=== PATIENT | male | born 1955 | race Caucasian/White ===

== ENCOUNTER 2016-11-22 18:49 | Emergency (ER) | payer OTHER ==
[2016-11-22 19:07] VITALS: BP 112/67; PULSE 84; RESP 18; TEMP 98.2; O2SAT 97
--- NOTE | 2016-11-22 20:16 | ED PDOC ---
HPI: Skin/Bite Injury Time Seen by Provider: 11/22/16 20:08 Chief Complaint (Nursing): Abnormal Skin Integrity Chief Complaint (Provider): Abrasions behind both Ears History Per: Patient History/Exam Limitations: no limitations Onset/Duration Of Symptoms: Days (x3) Additional Complaint(s): 20:08 Doe Ewrin, 61 year old male initially asleep in ED chair upon arrival, complains of abrasions behind both ears when woken up. No additional complaints at this time. Past Medical History Reviewed: Historical Data, Nursing Documentation, Vital Signs Vital Signs: Last Vital Signs Temp 98.2 F 11/22/16 19:06 Pulse 84 11/22/16 19:06 Resp 18 11/22/16 19:06 BP 112/67 11/22/16 19:06 Pulse Ox 97 11/22/16 21:11 - Medical History PMH: No Chronic Diseases - Family History Family History: States: Unknown Family Hx - Home Medications Home Medications: Ambulatory Orders Medication Instructions Recorded No Known Home Med [No Known Home 01/31/15 Med] - Allergies Allergies/Adverse Reactions: Allergies Allergy/AdvReac Type Severity Reaction Status Date / Time No Known Allergies Allergy Verified 08/08/16 20:22 Review of Systems ENT: Positive for: Other (Complains of Abrasions behind both ears) Physical Exam - Reviewed Nursing Documentation Reviewed: Yes Vital Signs Reviewed: Yes - Physical Exam Appears: Positive for: Non-toxic, No Acute Distress Head Exam: Positive for: ATRAUMATIC, NORMAL INSPECTION (No Abrasions visualized. ), NORMOCEPHALIC - ECG O2 Sat by Pulse Oximetry: 97 (RA) Pulse Ox Interpretation: Normal Medical Decision Making Medical Decision Makin:08 Initial Impression: * Reported superficial abrasions * Normal physical exam * Homeless Scribe Attestation: Documented by Lisbeth Simons, training under Nargis Keith, acting as a scribe for Katlin Reeves PA-C. Provider Scribe Attestation: All medical record entries made by the Scribe were at my direction and personally dictated by me. I have reviewed the chart and agree that the record accurately reflects my personal performance of the history, physical exam, medical decision making, and the department course for this patient. I have also personally directed, reviewed, and agree with the discharge instructions and disposition. Disposition - Clinical Impression Clinical Impression: Skin lesion - Patient ED Disposition Is Patient to be Admitted: No - Disposition Disposition: Routine/Home Disposition Time: 21:54 Condition: STABLE Instructions: Abrasion (ED)
== END 2016-11-22 21:57 | disposition home or self-care (01) ==
LOC: H.ER 18:49
DX: T14.8 Other injury of unspecified body region (principal); Z59.0 Homelessness

== ENCOUNTER 2016-12-09 00:20 | Emergency (ER) | payer OTHER ==
[2016-12-09 00:50] VITALS: BP 138/87; PULSE 76; RESP 16; TEMP 98.7; O2SAT 98
--- NOTE | 2016-12-09 01:15 | ED PDOC ---
Upper Extremity Pain/Injury Time Seen by Provider: 12/09/16 00:51 Chief Complaint (Nursing): Finger,Hand,&Wrist Chief Complaint (Provider): thumb eval History Per: Patient History/Exam Limitations: no limitations Additional History Per: Patient Additional Complaint(s): 61 y/o male presents for eval of injury to left thumb. Patient states he was just treated at an ED in [place], where he was given antibiotics and had prescription sent to one of his pharmacies so he decided to come here too. Denies fever, limitation of movement. Past Medical History Reviewed: Historical Data, Nursing Documentation, Vital Signs Vital Signs: Last Vital Signs Temp 98.7 F 12/09/16 00:46 Pulse 76 12/09/16 00:46 Resp 16 12/09/16 00:46 BP 138/87 12/09/16 00:46 Pulse Ox 98 12/09/16 00:46 - Family History Family History: States: Unknown Family Hx - Home Medications Home Medications: Ambulatory Orders Medication Instructions Recorded Cephalexin [Keflex] 500 mg PO Q6 #28 capsule 12/09/16 - Allergies Allergies/Adverse Reactions: Allergies Allergy/AdvReac Type Severity Reaction Status Date / Time No Known Allergies Allergy Verified 08/08/16 20:22 Review of Systems ROS Statement: Except As Marked, All Systems Reviewed And Found Negative Musculoskeletal: Positive for: Hand Pain (left thumb) Physical Exam - Reviewed Nursing Documentation Reviewed: Yes Vital Signs Reviewed: Yes - Physical Exam Appears: Positive for: Well, Non-toxic, No Acute Distress Extremity: Positive for: Normal ROM, Other (dried drainage nailbed left hand first digit. Mild surrounding tenderness. No swelling. FROM) Neurologic/Psych: Positive for: Alert, Oriented - ECG O2 Sat by Pulse Oximetry: 98 - Progress ED Course And Treament: Patient given rx for Keflex because he states he does not remember what pharmacy antibiotic was sent to. Patient has follow up appt in [place] set for Thursday, but patient states he will go to [facility] for his follow up care. Return to Ed for worsening/concerning symptoms. Disposition - Clinical Impression Clinical Impression: Cellulitis - Patient ED Disposition Is Patient to be Admitted: No Counseled Patient/Family Regarding: Diagnosis, Need For Followup, Rx Given - Disposition Disposition: Routine/Home Disposition Time: 02:30 Condition: STABLE Additional Instructions: Follow up at your scheduled appointment. Take medication as directed. Return to ED for worsening/concerning symptoms. Prescriptions: Cephalexin [Keflex] 500 mg PO Q6 #28 capsule Instructions: Cellulitis (ED)
== END 2016-12-09 02:30 | disposition home or self-care (01) ==
LOC: H.ER 00:20
DX: L03.012 Cellulitis of left finger (principal)

== ENCOUNTER 2017-01-30 01:10 | Emergency (ER) | payer OTHER ==
[2017-01-30 01:27] VITALS: O2SAT 98
--- NOTE | 2017-01-30 03:19 | ED PDOC ---
HPI: General Adult Time Seen by Provider: 01/30/17 03:39 Chief Complaint (Nursing): Upper Extremity Problem/Injury Chief Complaint (Provider): medical eval History Per: Patient History/Exam Limitations: no limitations Additional Complaint(s): 61yo M in ED for eval of skin lesion to his back x december years. no other complains. Past Medical History Reviewed: Historical Data, Nursing Documentation, Vital Signs Vital Signs: Last Vital Signs Temp 98 F 01/30/17 01:23 Pulse 78 01/30/17 01:23 Resp 18 01/30/17 01:23 BP 152/96 H 01/30/17 01:23 Pulse Ox 98 01/30/17 01:23 - Medical History PMH: No Chronic Diseases - Family History Family History: States: Unknown Family Hx - Home Medications Home Medications: Ambulatory Orders Medication Instructions Recorded Cephalexin [Keflex] 500 mg PO Q6 #28 capsule 12/09/16 Mupirocin Calcium [Mupirocin] 2 gm TP DAILY #15 gm 01/30/17 - Allergies Allergies/Adverse Reactions: Allergies Allergy/AdvReac Type Severity Reaction Status Date / Time No Known Allergies Allergy Verified 01/30/17 01:23 Review of Systems ROS Statement: Except As Marked, All Systems Reviewed And Found Negative Constitutional: Negative for: Fever Physical Exam - Reviewed Nursing Documentation Reviewed: Yes Vital Signs Reviewed: Yes - Physical Exam Appears: Positive for: Well, Non-toxic, No Acute Distress Head Exam: Positive for: ATRAUMATIC, NORMAL INSPECTION, NORMOCEPHALIC Skin: Positive for: Normal Color, Warm, Rash (wart on back) Neurologic/Psych: Positive for: Alert, Oriented - ECG O2 Sat by Pulse Oximetry: 98 Medical Decision Making Medical Decision Making: pt d/c give muporcin advised to have pmd f.u Disposition - Clinical Impression Clinical Impression: Skin lesion - Patient ED Disposition Is Patient to be Admitted: No - Disposition Disposition: Routine/Home Disposition Time: 04:02 Condition: STABLE Prescriptions: Mupirocin Calcium [Mupirocin] 2 gm TP DAILY #15 gm Instructions: Common Wart (ED)
[2017-01-30 06:50] VITALS: BP 146/71; PULSE 72; RESP 16; TEMP 97.9
== END 2017-01-30 04:15 | disposition home or self-care (01) ==
LOC: H.ER 01:10
DX: Z48.00 Encounter for change or removal of nonsurgical wound dressing (principal)

== ENCOUNTER 2017-04-27 04:57 | Emergency (ER) | payer OTHER ==
[2017-04-27 05:15] VITALS: BP 130/74; PULSE 82; RESP 18; TEMP 98.4; O2SAT 97; BMI 27.1
--- NOTE | 2017-04-27 05:20 | ED PDOC ---
Upper Extremity Pain/Injury Time Seen by Provider: 04/27/17 05:04 Chief Complaint (Nursing): Finger,Hand,&Wrist Chief Complaint (Provider): Hand pain History Per: Patient Additional Complaint(s): Doe Erwin, 61 year old male initially asleep in ED chair upon arrival, complains of left hand pain sustained from an injury several years ago. Pt reports "I want a second opinion." No additional complaints at this time. Past Medical History Reviewed: Nursing Documentation, Vital Signs Vital Signs: Last Vital Signs Temp 98.4 F 04/27/17 05:13 Pulse 82 04/27/17 05:13 Resp 18 04/27/17 05:13 BP 130/74 04/27/17 05:13 Pulse Ox 97 04/27/17 05:13 - Medical History PMH: No Chronic Diseases - Family History Family History: States: Unknown Family Hx - Home Medications Home Medications: Ambulatory Orders Medication Instructions Recorded Cephalexin [Keflex] 500 mg PO Q6 #28 capsule 12/09/16 Mupirocin Calcium [Mupirocin] 2 gm TP DAILY #15 gm 01/30/17 - Allergies Allergies/Adverse Reactions: Allergies Allergy/AdvReac Type Severity Reaction Status Date / Time No Known Allergies Allergy Verified 01/30/17 01:23 Review of Systems ROS Statement: Except As Marked, All Systems Reviewed And Found Negative Musculoskeletal: Positive for: Other (left hand pain) Physical Exam - Reviewed Nursing Documentation Reviewed: Yes Vital Signs Reviewed: Yes - Physical Exam Appears: Positive for: Well, Non-toxic, No Acute Distress Head Exam: Positive for: ATRAUMATIC, NORMAL INSPECTION, NORMOCEPHALIC Skin: Positive for: Normal Color, Warm, DRY Eye Exam: Positive for: EOMI, Normal appearance, PERRL ENT: Positive for: Normal ENT Inspection Neck: Positive for: Normal, Painless ROM Cardiovascular/Chest: Positive for: Regular Rate, Rhythm Respiratory: Positive for: CNT, Normal Breath Sounds Gastrointestinal/Abdominal: Positive for: Normal Exam, Bowel Sounds, Soft Back: Positive for: Normal Inspection Extremity: Positive for: Normal ROM, Tenderness, Other (mild edema over 3rd MCP joint) Neurologic/Psych: Positive for: Alert, Oriented - ECG O2 Sat by Pulse Oximetry: 97 Medical Decision Making Medical Decision Making: XR obtained:heath MENCHACA read by AIXA Disposition - Clinical Impression Clinical Impression: Hand pain - Patient ED Disposition Is Patient to be Admitted: No - Disposition Disposition: Routine/Home Disposition Time: 06:00 Condition: STABLE Instructions: Arthralgia (ED) Forms: [employer] (Bermudian) - POA Present On Arrival: None
--- NOTE | 2017-04-27 10:12 | RAD ---
PROCEDURE: Left Hand Radiographs. HISTORY: Pain COMPARISON: None. FINDINGS: BONES: There is no acute displaced fracture or bone destruction. Bone alignment and mineralization are normal. JOINTS: Normal. No osteoarthritic changes. SOFT TISSUES: Normal. OTHER FINDINGS: None. IMPRESSION: No acute fracture or dislocation.
== END 2017-04-27 06:16 | disposition home or self-care (01) ==
LOC: H.ER 04:57
DX: M79.642 Pain in left hand (principal)

== ENCOUNTER 2017-04-27 20:19 | Emergency (ER) | payer OTHER ==
[2017-04-27 20:19] VITALS: BMI 27.1
[2017-04-27 20:57] VITALS: BP 146/92; PULSE 82; RESP 18; TEMP 97.9; O2SAT 100
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
== END 2017-04-27 22:44 | disposition home or self-care (01) ==
LOC: H.ER 20:19
DX: Z00.00 Encounter for general adult medical examination without abnormal findings (principal)

== ENCOUNTER 2017-05-09 22:35 | Emergency (ER) | payer OTHER ==
[2017-05-09 22:35] VITALS: BMI 27.1
--- NOTE | 2017-05-09 23:39 | ED PDOC ---
HPI: Abdomen Time Seen by Provider: 05/09/17 23:19 Chief Complaint (Nursing): Abdominal Pain Chief Complaint (Provider): Abdominal Pain History Per: Patient History/Exam Limitations: no limitations Onset/Duration Of Symptoms: Days (x1) Current Symptoms Are (Timing): Still Present Additional Complaint(s): Doe Erwin is a 61 year old male who presents to the emergency department with a complaint of watery diarrhea associated with abdominal bloating status post eating Macedonian food ongoing for 3 days. Denied any fever, chills or abdominal pain. Patient stated he usually goes to a [facility] in [place] but was in the area visiting when symptoms began and reported diarrhea has become slightly better. PMD: none provided Past Medical History Reviewed: Historical Data, Nursing Documentation, Vital Signs Vital Signs: Last Vital Signs Temp 97.5 F L 05/09/17 22:42 Pulse 69 05/09/17 22:42 Resp 18 05/09/17 22:42 BP 144/77 05/09/17 22:42 Pulse Ox 98 05/09/17 23:47 - Medical History PMH: No Chronic Diseases - Surgical History Surgical History: No Surg Hx - Family History Family History: States: Unknown Family Hx - Social History Current smoker - smoking cessation education provided: No Ex-Smoker (has not smoked in the last 12 months): No Alcohol: Social Drugs: Denies - Home Medications Home Medications: Ambulatory Orders Medication Instructions Recorded No Known Home Med 05/09/17 - Allergies Allergies/Adverse Reactions: Allergies Allergy/AdvReac Type Severity Reaction Status Date / Time No Known Allergies Allergy Verified 01/30/17 01:23 Review of Systems ROS Statement: Except As Marked, All Systems Reviewed And Found Negative Constitutional: Negative for: Fever, Chills Gastrointestinal: Positive for: Diarrhea (watery), Other (abdominal bloating). Negative for: Vomiting, Abdominal Pain Physical Exam - Reviewed Nursing Documentation Reviewed: Yes Vital Signs Reviewed: Yes - Physical Exam Appears: Positive for: Well, Non-toxic, No Acute Distress Head Exam: Positive for: ATRAUMATIC, NORMAL INSPECTION, NORMOCEPHALIC Skin: Positive for: Normal Color Eye Exam: Positive for: Normal appearance, EOMI, PERRL. Negative for: Nystagmus ENT: Positive for: Normal ENT Inspection Neck: Positive for: Normal, Painless ROM, Supple. Negative for: Decreased ROM Cardiovascular/Chest: Positive for: Regular Rate, Rhythm. Negative for: Chest Non Tender Respiratory: Positive for: Normal Breath Sounds, Accessory Muscle Use. Negative for: Decreased Breath Sounds, Respiratory Distress Gastrointestinal/Abdominal: Positive for: Normal Exam, Bowel Sounds, Soft. Negative for: Tenderness, Mass Back: Positive for: Normal Inspection. Negative for: L CVA Tenderness, R CVA Tenderness Extremity: Positive for: Normal ROM. Negative for: Tenderness, Pedal Edema, Deformity Neurologic/Psych: Positive for: Alert, Oriented - ECG O2 Sat by Pulse Oximetry: 98 (RA) Pulse Ox Interpretation: Normal Medical Decision Making Medical Decision Making: Initial Impression: Diarrhea; abdominal bloating Differential Diagnosis: Gastritis; enteritis; viral illness; less likely small bowel obstruction Initial Plan: * Amylase * CMP * Lipase * CBC * Xray ABD Time: 00:00 --Patient is signed out to Dr. Martin Ospina. Pending Xray results and disposition. Scribe Attestation: Documented by Yady Knott, acting as a scribe for Horace Hood MD. Provider Scribe Attestation: All medical record entries made by the Scribe were at my direction and personally dictated by me. I have reviewed the chart and agree that the record accurately reflects my personal performance of the history, physical exam, medical decision making, and the department course for this patient. I have also personally directed, reviewed, and agree with the discharge instructions and disposition. Disposition - Clinical Impression Clinical Impression: Diarrhea - Patient ED Disposition Is Patient to be Admitted: Transfer of Care Counseled Patient/Family Regarding: Studies Performed, Diagnosis - Disposition Disposition: Transfer of Care Disposition Time: 23:59 Condition: STABLE Forms: [employer] (Slovenian) Patient Signed Over To: Martin Ospina
[2017-05-09 23:55] LABS: BASO # 0.1 K/uL (0.0-0.2); BASO % 1.1 % (0.0-2.0); EOS # 0.1 K/uL (0.0-0.7); EOS % 2.3 % (0.0-4.0); HEMATOCRIT 37.3 % (35.0-51.0); LYMPH # 1.8 K/uL (1.0-4.3); LYMPH % 37.7 % (20.0-40.0); MEAN CELL VOLUME 87.7 fl (80.0-94.0); MEAN CORPUSCULAR HEMOGLOBIN 28.9 pg (27.0-31.0); MEAN CORPUSCULAR HGB CONC 32.9 g/dL (33.0-37.0); MONO # 0.4 K/uL (0.0-0.8); MONO % 8.3 % (0.0-10.0); NEUT # 2.4 K/uL (1.8-7.0); NEUT % 50.6 % (50.0-75.0); NRBC % 0.2 % (0.0-0.0); WHITE BLOOD COUNT 4.7 K/uL (4.8-10.8)
--- NOTE | 2017-05-10 00:01 | ED PDOC ---
- Laboratory Results Result Diagrams: 05/09/17 23:45 05/09/17 23:45 - ECG O2 Sat by Pulse Oximetry: 98 (RA) Pulse Ox Interpretation: Normal Medical Decision Making Medical Decision Making: Time: 00:00 --Patient was endorsed to provider by Dr. Horace Hood. Pending xray results, labs and disposition. 400 Pt. resting comfortably, no diarrhea in ER. Will d/c home. Return precautions given. Scribe Attestation: Documented by Yady Knott, acting as a scribe for Martin Ospina MD. Provider Scribe Attestation: All medical record entries made by the Scribe were at my direction and personally dictated by me. I have reviewed the chart and agree that the record accurately reflects my personal performance of the history, physical exam, medical decision making, and the department course for this patient. I have also personally directed, reviewed, and agree with the discharge instructions and disposition. Disposition - Clinical Impression Clinical Impression: Diarrhea - POA Present On Arrival: None - Disposition Referrals: [facility] [Outside] Disposition: Routine/Home Disposition Time: 04:00 Condition: STABLE Prescriptions: Dicyclomine [Bentyl] 10 mg PO QID #30 cap Instructions: Acute Diarrhea (ED) Forms: [employer] (Sammarinese)
[2017-05-10 00:03] LABS: ALB/GLOB RATIO 1.1 (1.0-2.1); ALKALINE PHOSPHATASE 66 U/L (38-126); ALT/SGPT 49 U/L (21-72); AMYLASE 104 U/L (30-110); AST/SGOT 35 U/L (17-59); BILIRUBIN,TOTAL 0.5 mg/dl (0.2-1.3); BLOOD UREA NITROGEN 22 mg/dl (9-20); CALCIUM 9.4 mg/dL (8.4-10.2); CARBON DIOXIDE 24 mmol/L (22-30); CHLORIDE 101 mmol/L (98-107); GFR AFRICAN-AMERICAN > 60; GLUCOSE,RANDOM 124 mg/dL (75-110); LIPASE 162 U/L (23-300); POTASSIUM 4.2 MMOL/L (3.6-5.0); SODIUM 137 mmol/l (132-148); TOTAL PROTEIN 7.7 G/DL (6.3-8.2)
[2017-05-10 04:23] VITALS: BP 139/78; PULSE 81; RESP 16; TEMP 97.8
[2017-05-10 04:29] VITALS: O2SAT 98
--- NOTE | 2017-05-10 09:45 | RAD ---
HISTORY: abd bloating COMPARISON: Abdominal radiographs performed 08/08/16 FINDINGS: BOWEL: Nonobstructive bowel gas pattern. No definite free air. BONES: No acute osseous abnormality is detected. OTHER FINDINGS: Pelvic calcifications, likely phleboliths. IMPRESSION: Nonobstructive bowel gas pattern.
== END 2017-05-10 04:24 | disposition home or self-care (01) ==
LOC: H.ER 22:35
DX: R19.7 Diarrhea, unspecified (principal); R10.9 Unspecified abdominal pain

== ENCOUNTER 2017-05-26 12:10 | Emergency (ER) | payer OTHER ==
[2017-05-26 12:11] VITALS: BMI 27.1
[2017-05-26 12:17] VITALS: BP 129/76; PULSE 78; RESP 19; TEMP 96; O2SAT 98
[2017-05-26] MEDS ORDERED: Alum-Mag Hydrox-Simethicone Susp (30 mL) PO STA (12:49)
[2017-05-26] MEDS ORDERED: Alum-Mag Hydrox-Simethicone Susp (30 mL) ONE (12:55)
[2017-05-26] MEDS ORDERED: Alum-Mag Hydrox-Simethicone Susp (30 mL) PO ONE (12:55)
--- NOTE | 2017-05-26 13:22 | ED PDOC ---
HPI: Abdomen Time Seen by Provider: 05/26/17 12:14 Chief Complaint (Nursing): Abdominal Pain Chief Complaint (Provider): Abdominal Pain History Per: Patient History/Exam Limitations: no limitations Onset/Duration Of Symptoms: Days (x weeks) Current Symptoms Are (Timing): Still Present Additional Complaint(s): Doe is a 62 y/o male who presents to the ED complaining of abdominal discomfort and nausea, ongoing for some time. Patient was recently seen for the same at a hospital in [facility]. Requesting Maalox and Pepcid. No vomiting or diarrhea. PMD: Provider TBD Past Medical History Reviewed: Historical Data, Nursing Documentation, Vital Signs Vital Signs: Last Vital Signs Temp 96.0 F L 05/26/17 12:13 Pulse 78 05/26/17 12:13 Resp 19 05/26/17 12:13 BP 129/76 05/26/17 12:13 Pulse Ox 98 05/26/17 13:35 - Family History Family History: States: Unknown Family Hx - Home Medications Home Medications: Ambulatory Orders Medication Instructions Recorded Dicyclomine [Bentyl] 10 mg PO QID #30 cap 05/10/17 Famotidine [Pepcid] 20 mg PO DAILY #30 tab 05/26/17 - Allergies Allergies/Adverse Reactions: Allergies Allergy/AdvReac Type Severity Reaction Status Date / Time No Known Allergies Allergy Verified 01/30/17 01:23 Review of Systems ROS Statement: Except As Marked, All Systems Reviewed And Found Negative Gastrointestinal: Positive for: Nausea, Abdominal Pain. Negative for: Vomiting , Diarrhea Physical Exam - Reviewed Nursing Documentation Reviewed: Yes Vital Signs Reviewed: Yes - Physical Exam Appears: Positive for: Well, Non-toxic, No Acute Distress Head Exam: Positive for: ATRAUMATIC, NORMAL INSPECTION, NORMOCEPHALIC Skin: Positive for: Normal Color, Warm, Dry Eye Exam: Positive for: Normal appearance Neck: Positive for: Normal Respiratory: Negative for: Respiratory Distress Gastrointestinal/Abdominal: Positive for: Normal Exam, Soft. Negative for: Tenderness, Guarding, Rebound Neurologic/Psych: Positive for: Alert, Oriented - ECG O2 Sat by Pulse Oximetry: 98 (RA) Pulse Ox Interpretation: Normal Medical Decision Making Medical Decision Making: Time: 12:49 Initial Plan: --Maalox 30 ml PO --Pepcid 20 mg PO Patient offered EKG and deferred. Labs from previous visit were reviewed, and normal. Patient also requesting to speak to a social sciences chair to have his [employer] card refilled. Clinical Impression: Abdominal pain Upon provider evaluation patient is medically stable, and requires no further treatment in the ED at this time. Patient will be discharged home with Rx for Pepcid. Counseling was provided and all questions were answered regarding diagnosis and need for follow up with PMD. There is agreement to discharge plan. Return if symptoms persist or worsen. Scribe Attestation: Documented by Nani Sadler, acting as a scribe for Carine Diamond PA-C Provider Scribe Attestation: All medical record entries made by the Scribe were at my direction and personally dictated by me. I have reviewed the chart and agree that the record accurately reflects my personal performance of the history, physical exam, medical decision making, and the department course for this patient. I have also personally directed, reviewed, and agree with the discharge instructions and disposition. Disposition - Clinical Impression Clinical Impression: Abdominal pain - Patient ED Disposition Is Patient to be Admitted: No Counseled Patient/Family Regarding: Diagnosis, Need For Followup, Rx Given - Disposition Referrals: FAMILY PROVIDER,NO [Primary Care Provider] - Disposition: Routine/Home Disposition Time: 13:10 Condition: STABLE Prescriptions: Famotidine [Pepcid] 20 mg PO DAILY #30 tab Instructions: Abdominal Pain (ED) Forms: [employer] (Singaporean)
== END 2017-05-26 14:05 | disposition home or self-care (01) ==
LOC: H.ER 12:10 → SUPCPDRO 12:10 → H.ER 14:05
DX: R10.9 Unspecified abdominal pain (principal)

== ENCOUNTER 2017-10-07 21:47 | Emergency (ER) | payer OTHER ==
[2017-10-07 21:48] VITALS: BMI 34.4
[2017-10-07 22:04] VITALS: BP 142/89; PULSE 80; RESP 18; TEMP 97.9; O2SAT 97
--- NOTE | 2017-10-07 22:37 | ED PDOC ---
HPI: Eye Injury/Pain Time Seen by Provider: 10/07/17 21:59 Chief Complaint (Nursing): Eye Problem Chief Complaint (Provider): "I just want to get my eye checked ou" History Per: Patient History/Exam Limitations: no limitations Onset/Duration Of Symptoms: Days Additional Complaint(s): 62 yo male presents for evaluation of eyes. Pt states he wants to make sure they are okay. Pt states he was concerned about certain foods he ate affecting them. Denies pain or change in vision. Past Medical History Reviewed: Historical Data, Nursing Documentation, Vital Signs Vital Signs: Last Vital Signs Temp 97.9 F 10/07/17 22:02 Pulse 80 10/07/17 22:02 Resp 18 10/07/17 22:02 BP 142/89 10/07/17 22:02 Pulse Ox 97 10/07/17 22:02 - Medical History PMH: No Chronic Diseases - Surgical History Surgical History: No Surg Hx - Family History Family History: States: Unknown Family Hx - Living Arrangements Living Arrangements: With Family - Social History Current smoker - smoking cessation education provided: No - Home Medications Home Medications: Ambulatory Orders Medication Instructions Recorded Dicyclomine [Bentyl] 10 mg PO QID #30 cap 05/10/17 Famotidine [Pepcid] 20 mg PO DAILY #30 tab 05/26/17 - Allergies Allergies/Adverse Reactions: Allergies Allergy/AdvReac Type Severity Reaction Status Date / Time No Known Allergies Allergy Verified 10/07/17 22:01 Review of Systems ROS Statement: Except As Marked, All Systems Reviewed And Found Negative Constitutional: Negative for: Fever, Chills Eyes: Negative for: Pain, Eyelid Inflammation, Redness ENT: Negative for: Ear Pain, Ear Discharge Physical Exam - Reviewed Nursing Documentation Reviewed: Yes Vital Signs Reviewed: Yes - Physical Exam Appears: Positive for: Well, Non-toxic, No Acute Distress Head Exam: Positive for: ATRAUMATIC, NORMAL INSPECTION, NORMOCEPHALIC Skin: Positive for: Normal Color Eye Exam: Positive for: EOMI, Normal appearance, PERRL ENT: Positive for: Normal ENT Inspection Neck: Positive for: Normal Respiratory: Negative for: Accessory Muscle Use, Respiratory Distress Back: Positive for: Normal Inspection Extremity: Positive for: Normal ROM Neurologic/Psych: Positive for: Alert, Oriented - ECG O2 Sat by Pulse Oximetry: 97 Disposition - Clinical Impression Clinical Impression: Normal eye exam - Patient ED Disposition Is Patient to be Admitted: No - Disposition Disposition: Routine/Home Disposition Time: 22:34 Condition: STABLE Instructions: Fluorescein Angiography
== END 2017-10-07 22:56 | disposition home or self-care (01) ==
LOC: H.ER 21:47
DX: Z01.00 Encounter for examination of eyes and vision without abnormal findings (principal)

== ENCOUNTER 2017-10-11 12:00 | Emergency (ER) | payer OTHER ==
[2017-10-11 12:00] VITALS: BMI 34.4
[2017-10-11 12:22] VITALS: BP 140/89; PULSE 81; RESP 16; TEMP 97; O2SAT 97
--- NOTE | 2017-10-11 13:26 | ED PDOC ---
HPI: Eye Injury/Pain Time Seen by Provider: 10/11/17 13:21 Chief Complaint (Nursing): Eye Problem Chief Complaint (Provider): Eye Problem History Per: Patient Additional Complaint(s): 62 year old male presents to ED requesting an eye examination and presented to the ED 4 days ago for the same request. Patient states he recently returned from [facility]. (-) change in vision. Denies drug use. PCP: None Past Medical History Reviewed: Historical Data, Nursing Documentation, Vital Signs Vital Signs: Last Vital Signs Temp 97.0 F L 10/11/17 12:19 Pulse 81 10/11/17 12:19 Resp 16 10/11/17 12:19 BP 140/89 10/11/17 12:19 Pulse Ox 97 10/11/17 12:19 - Medical History PMH: No Chronic Diseases - Family History Family History: States: Unknown Family Hx - Social History Drugs: Denies - Home Medications Home Medications: Ambulatory Orders Medication Instructions Recorded No Known Home Med 10/12/17 - Allergies Allergies/Adverse Reactions: Allergies Allergy/AdvReac Type Severity Reaction Status Date / Time No Known Allergies Allergy Verified 10/11/17 12:19 Review of Systems ROS Statement: Except As Marked, All Systems Reviewed And Found Negative Eyes: Negative for: Pain, Vision Change Physical Exam - Reviewed Nursing Documentation Reviewed: Yes Vital Signs Reviewed: Yes - Physical Exam Appears: Positive for: Non-toxic, No Acute Distress Eye Exam: Positive for: EOMI, PERRL (pupils are dilated) - ECG O2 Sat by Pulse Oximetry: 97 (RA) Pulse Ox Interpretation: Normal Medical Decision Making Medical Decision Makin Initial impression: eye exam without abnormal findings Scribe Attestation: Documented by Ghada Mims, acting as a scribe for Bladimir Mcdonald PA-C. Provider Scribe Attestation: All medical record entries made by the Scribe were at my direction and personally dictated by me. I have reviewed the chart and agree that the record accurately reflects my personal performance of the history, physical exam, medical decision making, and the department course for this patient. I have also personally directed, reviewed, and agree with the discharge instructions and disposition. Disposition - Clinical Impression Clinical Impression: Encounter for examination of eyes and vision without abnormal findings, Encounter for wound re-check, Normal eye exam - Disposition Referrals: [facility] [Outside] Disposition Time: 13:58 Condition: GOOD Forms: [employer] (Jamaican)
== END 2017-10-11 14:13 | disposition home or self-care (01) ==
LOC: H.ER 12:00
DX: Z01.00 Encounter for examination of eyes and vision without abnormal findings (principal)

== ENCOUNTER 2017-10-12 09:22 | Emergency (ER) | payer OTHER ==
[2017-10-12 09:23] VITALS: BMI 34.4
--- NOTE | 2017-10-12 10:03 | ED PDOC ---
HPI: Psych/Substance Abuse Chief Complaint (Provider): Psychiatric Evaluation History/Exam Limitations: clinical condition Additional History Per: Prior Records Additional Complaint(s): Mr. Azar is a 62 year old male who presents to the ED via EMS who initially stated he wants an "eye exam'. Patient also had pressured tangential grandiose speech. 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 Hx limited due to clinical condition. Denies change in vision, headache, fever, neck pain, chest pain or shortness of breath. Prior charts reviewed. Several visits for similar complaints, however, psych component likely not as pronounced. PMD: [facility] <Doc Bellamy III - Last Filed: 10/12/17 19:23> <Mayank aNva - Last Filed: 10/12/17 20:17> Time Seen by Provider: 10/12/17 09:30 Chief Complaint (Nursing): Psychiatric Evaluation Past Medical History Reviewed: Unable To Obtain Vital Signs: Last Vital Signs Temp 97.6 F 10/12/17 09:34 Pulse 102 H 10/12/17 09:34 Resp 16 10/12/17 09:34 BP 154/86 H 10/12/17 09:34 Pulse Ox 98 10/12/17 09:34 - Family History Family History: States: Unknown Family Hx <Doc Bellamy III - Last Filed: 10/12/17 19:23> Vital Signs: Last Vital Signs Temp 97.6 F 10/12/17 09:34 Pulse 102 H 10/12/17 09:34 Resp 16 10/12/17 09:34 BP 154/86 H 10/12/17 09:34 Pulse Ox 98 10/12/17 12:01 <Mayank Nava - Last Filed: 10/12/17 20:17> - Home Medications Home Medications: Ambulatory Orders Medication Instructions Recorded No Known Home Med 10/12/17 - Allergies Allergies/Adverse Reactions: Allergies Allergy/AdvReac Type Severity Reaction Status Date / Time No Known Allergies Allergy Verified 10/11/17 12:19 Review of Systems Review Of Systems: ROS cannot be obtained secondary to pt's inabilty to answer questions. (Caveat: Unrealiable historian) <Doc Bellamy III - Last Filed: 10/12/17 19:23> Physical Exam - Reviewed Nursing Documentation Reviewed: Yes Vital Signs Reviewed: Yes - Physical Exam Appears: Positive for: Non-toxic Head Exam: Positive for: ATRAUMATIC, NORMAL INSPECTION, NORMOCEPHALIC Skin: Positive for: Normal Color, Warm, Dry Eye Exam: Positive for: Normal appearance, EOMI, PERRL ENT: Positive for: Normal ENT Inspection Neck: Positive for: Normal Cardiovascular/Chest: Positive for: Regular Rate, Rhythm Respiratory: Positive for: Normal Breath Sounds. Negative for: Respiratory Distress Gastrointestinal/Abdominal: Positive for: Normal Exam Back: Positive for: Normal Inspection Extremity: Positive for: Normal ROM. Negative for: Deformity Neurologic/Psych: Positive for: Alert, Oriented (x 3), Other (Pressued speech, grandiose, repetitive/ tangential speech, poor insight, delusional) <Doc Bellamy III - Last Filed: 10/12/17 19:23> - Laboratory Results Result Diagrams: 10/12/17 10:00 10/12/17 10:00 - ECG O2 Sat by Pulse Oximetry: 98 <Doc Bellamy III - Last Filed: 10/12/17 19:23> - Laboratory Results Result Diagrams: 10/12/17 10:00 10/12/17 10:00 - Radiology X-Ray: Interpreted by Co X-Ray Interpretation: No Acute Disease <Mayank Nava - Last Filed: 10/12/17 20:17> Medical Decision Making Medical Decision Making: Time: 09:46 Impression(s): Work up for crisis evaluation Plan: - EKG - Acetaminophen Stat - Alcohol Serum - CMP - Urine Drug Screen - Salicylate - Troponin I - CBC Time: 10:47 - Portable Chest X-Ray - 1:1 Observation CONT Time: 11:35 Portable Chest X-Ray FINDINGS: LUNGS: Bibasilar atelectasis right greater than left. Developing lower lobe infiltrates could be excluded with followup radiographs. The medial lung apices have been partially obscured by overlying facial soft tissue and mandible artifact PLEURA: No significant pleural effusion identified, no pneumothorax apparent. CARDIOVASCULAR: Heart appears enlarged OSSEOUS STRUCTURES: No significant abnormalities. VISUALIZED UPPER ABDOMEN: Normal. OTHER FINDINGS: None. IMPRESSION: Bibasilar atelectasis right greater than left. Developing lower lobe infiltrates could be excluded with followup radiographs. Time: 11:55 - Rapid HIV Screen - Urinalysis Stat approx 14:00 labs reviewed, clinically unremarkable. rapid HIV neg Per crisis, [facility] [place] [facility] [place], pending dispo, endorse Dr Nava Scribe Attestation: Documented by Eliceo Noel, acting as a scribe for Doc Bellamy III, DO Provider Scribe Attestation: All medical record entries made by the Scribe were at my direction and personally dictated by me. I have reviewed the chart and agree that the record accurately reflects my personal performance of the history, physical exam, medical decision making, and the department course for this patient. I have also personally directed, reviewed, and agree with the discharge instructions and disposition. 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 Patient clinically stable for psychiatric admission. <Mayank Nava - Last Filed: 10/12/17 20:17>
[2017-10-12 10:14] LABS: ALB/GLOB RATIO 1.2 (1.0-2.1); ALBUMIN 4.5 g/dL (3.5-5.0); ALT/SGPT 39 U/L (21-72); AST/SGOT 27 U/L (17-59); BLOOD UREA NITROGEN 14 mg/dl (9-20); CALCIUM 9.4 mg/dL (8.4-10.2); GFR AFRICAN-AMERICAN > 60; GFR NON-AFRICAN AMERICAN > 60
[2017-10-12 10:27] LABS: BASO % 0.8 % (0.0-2.0); EOS # 0.1 K/uL (0.0-0.7); EOS % 1.3 % (0.0-4.0); HEMOGLOBIN 13.3 g/dL (12.0-18.0); LYMPH # 1.3 K/uL (1.0-4.3); LYMPH % 28.9 % (20.0-40.0); MEAN CELL VOLUME 88.1 fl (80.0-94.0); MEAN CORPUSCULAR HEMOGLOBIN 29.2 pg (27.0-31.0); MEAN CORPUSCULAR HGB CONC 33.2 g/dL (33.0-37.0); MEAN PLATELET VOLUME 8.4 fl (7.2-11.7); MONO # 0.5 K/uL (0.0-0.8); MONO % 10.1 % (0.0-10.0); NEUT # 2.6 K/uL (1.8-7.0); NEUT % 58.9 % (50.0-75.0); NRBC % 0.1 % (0.0-0.0); RBC 4.54 Mil/uL (4.40-5.90); RED CELL DISTRIBUTION WIDTH 14.9 % (11.5-14.5); WHITE BLOOD COUNT 4.5 K/uL (4.8-10.8)
[2017-10-12 10:30] LABS: ACETAMINOPHEN < 10.0 ug/ml (10.0-30.0); SALICYLATE < 1.0 mg/dl
[2017-10-12 10:52] LABS: BARBITURATES, UR NEGATIVE (NEGATIVE); BENZODIAZEPINES, UR NEGATIVE (NEGATIVE); OPIATES, UR NEGATIVE (NEGATIVE); PHENCYCLIDINE, UR NEGATIVE (NEGATIVE)
--- NOTE | 2017-10-12 11:37 | RAD ---
HISTORY: AMS COMPARISON: No prior. FINDINGS: LUNGS: Bibasilar atelectasis right greater than left. Developing lower lobe infiltrates could be excluded with followup radiographs. The medial lung apices have been partially obscured by overlying facial soft tissue and mandible artifact PLEURA: No significant pleural effusion identified, no pneumothorax apparent. CARDIOVASCULAR: Heart appears enlarged OSSEOUS STRUCTURES: No significant abnormalities. VISUALIZED UPPER ABDOMEN: Normal. OTHER FINDINGS: None. IMPRESSION: Bibasilar atelectasis right greater than left. Developing lower lobe infiltrates could be excluded with followup radiographs.
[2017-10-12 12:20] LABS: SQUAMOUS EPITHIAL 1 /hpf (0-5); URINE AMORPHOUS SEDIMENT RARE /ul (<OCC); URINE BILIRUBIN NEGATIVE (NEGATIVE); URINE BLOOD NEGATIVE (NEGATIVE); URINE CLARITY SLIGHTY-CLOUDY (Clear); URINE COLOR YELLOW (YELLOW); URINE GLUCOSE (UA) NEG (Normal); URINE LEUKOCYTE ESTERASE NEG Leu/uL (Negative); URINE PROTEIN NEGATIVE (NEGATIVE)
--- NOTE | 2017-10-12 17:56 | CARD ---
APPROVED REPORT EKG Measurement Heart [id number] <Conclusion> Normal sinus rhythm Possible Left atrial enlargement Borderline ECG
--- NOTE | 2017-10-13 02:58 | ED PDOC ---
- Laboratory Results Result Diagrams: 10/12/17 10:00 10/12/17 10:00 - ECG O2 Sat by Pulse Oximetry: 99 (RA) Pulse Ox Interpretation: Normal Medical Decision Making Medical Decision Making: Time: --00:00 Reassess --Patient signed out to the provider by Dr. Nava pending bed at [facility]. Scribe Attestation: Documented by Malcom Zamudio acting as a scribe for Horace Hood MD. Provider Attestation: All medical record entries made by the Scribe were at my direction and personally dictated by me. I have reviewed the chart and agree that the record accurately reflects my personal performance of the history, physical exam, medical decision making, and the department course for this patient. I have also personally directed, reviewed, and agree with the discharge instructions and disposition. 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
--- NOTE | 2017-10-13 07:16 | ED PDOC ---
- Laboratory Results Result Diagrams: 10/12/17 10:00 10/12/17 10:00 - ECG O2 Sat by Pulse Oximetry: 99 (RA) Pulse Ox Interpretation: Normal Medical Decision Making Medical Decision Making: recd at 7am pending beds at [facility]. No issues reported overnight. Patient awake and watching TV on rounds. 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
--- NOTE | 2017-10-13 09:31 | RAD ---
HISTORY: crisis COMPARISON: Chest radiograph performed approximately 9 hours prior TECHNIQUE: Chest PA and lateral FINDINGS: LUNGS: Bibasilar atelectasis. PLEURA: No significant pleural effusion identified. No pneumothorax apparent. CARDIOVASCULAR: Cardiomediastinal silhouette unchanged. OSSEOUS STRUCTURES: Unchanged. VISUALIZED UPPER ABDOMEN: Normal. OTHER FINDINGS: None. IMPRESSION: Basilar atelectasis.
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
[2017-10-13 13:44] VITALS: BP 129/70; PULSE 95; RESP 18; TEMP 98.2
[2017-10-13 19:09] VITALS: O2SAT 99
== END 2017-10-13 13:50 | disposition short-term general hospital (02) ==
LOC: H.ER 09:22
DX: F22 Delusional disorders (principal); Z00.8 Encounter for other general examination

== ENCOUNTER 2017-11-10 18:08 | Emergency (ER) | payer OTHER ==
[2017-11-10 18:09] VITALS: BMI 34.4
[2017-11-10 18:26] VITALS: BP 112/72; PULSE 95; RESP 16; TEMP 99.3; O2SAT 99
--- NOTE | 2017-11-10 20:44 | ED PDOC ---
HPI: Eye Injury/Pain Time Seen by Provider: 11/10/17 20:14 Chief Complaint (Nursing): Eye Problem Chief Complaint (Provider): eye swelling History Per: Patient History/Exam Limitations: no limitations Onset/Duration Of Symptoms: Days (3 months), Waxing/Waning Additional Complaint(s): 62 y/o male presents for eye evaluation. Patient states he feels his eyes get swollen on-and-off x 3 months since starting Haldol and Cogentin. Patient denies headache, dizziness, vision changes, eye drainage, itching to eyes, pain to eyes, foreign body sensation in eyes. Past Medical History Reviewed: Historical Data, Nursing Documentation, Vital Signs Vital Signs: Last Vital Signs Temp 99.3 F 11/10/17 18:22 Pulse 95 H 11/10/17 18:22 Resp 16 11/10/17 18:22 BP 112/72 11/10/17 18:22 Pulse Ox 99 11/10/17 18:22 - Medical History PMH: Schizophrenia Denies: Diabetes, Hepatitis, HIV, HTN, Seizures, Sexually Transmitted Disease - Surgical History Surgical History: No Surg Hx - Family History Family History: States: Unknown Family Hx - Home Medications Home Medications: Ambulatory Orders Medication Instructions Recorded No Known Home Med 10/12/17 - Allergies Allergies/Adverse Reactions: Allergies Allergy/AdvReac Type Severity Reaction Status Date / Time No Known Allergies Allergy Verified 10/11/17 12:19 Review of Systems ROS Statement: Except As Marked, All Systems Reviewed And Found Negative Eyes: Positive for: Eyelid Inflammation Physical Exam - Reviewed Nursing Documentation Reviewed: Yes Vital Signs Reviewed: Yes - Physical Exam Appears: Positive for: Well, Non-toxic, No Acute Distress Head Exam: Positive for: ATRAUMATIC, NORMAL INSPECTION, NORMOCEPHALIC Skin: Positive for: Normal Color Eye Exam: Positive for: Normal appearance, EOMI, PERRL. Negative for: Periorbital swelling, Periorbital tenderness, Conjunctival injection ENT: Positive for: Normal ENT Inspection Cardiovascular/Chest: Positive for: Regular Rate, Rhythm Respiratory: Positive for: Normal Breath Sounds Extremity: Positive for: Normal ROM Neurologic/Psych: Positive for: Alert, Oriented - ECG O2 Sat by Pulse Oximetry: 99 - Progress ED Course And Treament: Patient educated on findings, no visible swelling at present. Advised follow up optho. Follow up psychiatry.Patient states he see's all of his doctors at the [facility]. Return precautions given. Disposition - Clinical Impression Clinical Impression: Normal eye exam - Patient ED Disposition Is Patient to be Admitted: No Counseled Patient/Family Regarding: Studies Performed, Diagnosis, Need For Followup - Disposition Disposition: Routine/Home Disposition Time: 21:36 Condition: GOOD Forms: [facility] (Nepalese)
== END 2017-11-10 21:44 | disposition home or self-care (01) ==
LOC: H.ER 18:08
DX: Z01.00 Encounter for examination of eyes and vision without abnormal findings (principal); Z86.59 Personal history of other mental and behavioral disorders